=== PATIENT | female | born 1965 | race Caucasian/White ===

== ENCOUNTER → 2016-03-16 | Outpatient (CLI) | payer OTHER ==
--- NOTE | 2016-03-16 14:29 | MA ---
Screening Digital Mammogram With Tomosynthesis Clinical Indications: Routine screening. Technique: Standard digital cephalocaudal and tomosynthesis mediolateral oblique projections are obt ained. The digital images were processed by the [email or web address] computer aided detection system. Comparison: May 2014, May 2013, May 2012, May 2011 Breast density: B; There are scattered fibroglandular densities. Findings: CAD was reviewed. No suspicious findings are identified. Impression: Negative mammogram. BI-RADS 1. Recommendation: Routine screening is recommended in one year. [facility] will send a result letter to the patient. Negative mammography should not preclude additional workup of a clinically suspicious finding. The patient's information is entered into a reminder system with a target due date for her next mammo gram.
== END ==
LOC: FIMAGING 13:49
PROVIDERS: ATTEND Family Medicine
DX: Z12.31 Encounter for screening mammogram for malignant neoplasm of breast (principal)
CPT/HCPCS: G0202

== ENCOUNTER → 2016-04-26 | Outpatient (CLI) | payer OTHER ==
--- NOTE | 2016-04-27 08:51 | DX ---
DEXA Bone Mineral Densitometry Clinical Indications: Postmenopausal, thyroid replacement for hypothyroidism, screening for osteopo rosis Comparison: 09/11/2010 (low bone density) Technique: Bone Mineral Densitometry (BMD) by Dual Energy X-Ray Absorptiometry (DEXA) was performed utilizing the [employer] scanner. The lumbar spine was evaluated in the AP projection. The marivel ateral hips and forearm were evaluated in the AP projection. Vertebral fracture assessment was also performed. AP Lumbar Spine: The L1, L2, L3 and L4 vertebral bodies were evaluated. BMD: 1.178 gm/cm2 T-score: -0.1 SD Z-score: 0.5 SD Significantly decreased by 4.9% AP Left Hip: Neck BMD: 0.807 gm/cm2 T-score: -1.7 SD Z-score: -0.7 SD Total BMD is significantly decreased by 5.1% AP Right Hip: Neck BMD: 0.799 gm/cm2 T-score: -1.7 SD Z-score: -0.8 SD Total BMD has significantly decreased by 6.4% AP Right Forearm, 03/16: BMD: 0.802 gm/cm2 T-score: -0.8 SD Z-score: -0.7 SD No significant change. Vertebral Fracture Assessment: No significant fracture deformity. No prevertebral aortic calcificat ion, significant marginal bone spurring, facet arthrosis, or intrinsic vertebral body sclerosis wandy t would effect the accuracy of the lumbar spine BMD measurement. Conclusion: Considering the lowest measured site, the patient has low bone density. The ten year FRAX risk for any major osteoporotic fracture is 5.8% and for a hip fracture is 0.6%. Any bone loss in this patient is probably related to aging or estrogen deficiency. To prevent osteoporosis and to promote the patient's bone density, the following recommendations richard uld be considered: 1. Pursue a regular regimen of weightbearing and muscle strengthening exercises in order to reduce the risk of falls and fractures (as tolerated by the patient's general medical condition). 2. Ensure that daily dietary calcium uptake is maximized. 3. Consider checking the serum vitamin D level. Ensure that intake of vitamin D is 600 IU per day (f or all ages through 70) . 4. Consider follow-up DEXA scan in 3-4 years to reassess the rate of bone loss in this patient.
== END ==
LOC: FIMAGING 13:13
PROVIDERS: ATTEND Family Medicine
DX: Z13.820 Encounter for screening for osteoporosis (principal); M85.80 Other specified disorders of bone density and structure, unspecified site